=== PATIENT | male | born 1985 | race Caucasian/White ===

== ENCOUNTER 2018-03-29 14:40 | Emergency (ER) | payer MEDICAID, OTHER ==
[~2018-03-29] VITALS: Ht 190.5 cm; Wt 74.8 kg
[2018-03-29 14:56] VITALS: BP 140/96
== END 2018-03-29 17:20 | disposition left against medical advice (07) ==
LOC: ER 14:49
DX: R07.89 Other chest pain (principal); F10.10 Alcohol abuse, uncomplicated; F17.210 Nicotine dependence, cigarettes, uncomplicated

== ENCOUNTER 2018-11-04 15:31 | Emergency (ER) | payer MEDICAID ==
[~2018-11-04] VITALS: Ht 167.6 cm; Wt 74.8 kg
[2018-11-04 15:46] VITALS: BP 135/95
== END 2018-11-04 16:52 | disposition home or self-care (01) ==
LOC: ER 15:31
DX: J32.9 Chronic sinusitis, unspecified (principal); F17.210 Nicotine dependence, cigarettes, uncomplicated

== ENCOUNTER 2020-05-08 10:23 | Emergency (ER) | payer MEDICAID ==
[~2020-05-08] VITALS: Ht 175.3 cm; Wt 74.8 kg
[2020-05-08 10:48] VITALS: BP 140/78
[2020-05-08] MEDS ORDERED: LIDOCAINE 1% HCL (LOCAL ANESTH.) INJ 20ML MDV IJ ONE (11:15)
[2020-05-08] MEDS ORDERED: BACITRACIN TOP OINT 1 UD PKG TOP ONE (11:45)
== END 2020-05-08 11:44 | disposition home or self-care (01) ==
LOC: ER 10:23
DX: S91.011A Laceration without foreign body, right ankle, initial encounter (principal); F17.210 Nicotine dependence, cigarettes, uncomplicated; X58.XXXA Exposure to other specified factors, initial encounter; Y93.89 Activity, other specified; Y92.89 Other specified places as the place of occurrence of the external cause; Y99.8 Other external cause status
CPT/HCPCS: 12001

== ENCOUNTER 2021-03-19 09:17 | Emergency (ER) | payer MEDICAID ==
[~2021-03-19] VITALS: Ht 175.3 cm; Wt 79.4 kg
[2021-03-19] MEDS ORDERED: IOHEXOL 300 MG/ML 100ML BOTTLE IJ ONE ×2 (09:34→11:32)
[2021-03-19 09:59] LABS: Basophils # (auto) 0 10 ^3/uL (0-0.2); Basophils % (auto) 0.4 % (0.0-2.0); Eosinophils # (auto) 0 10 ^3/uL (0-0.8); Eosinophils % (auto) 0.4 % (0.0-7.0); Hematocrit 42.3 % (41.0-53.0); Hemoglobin 14.8 g/dL (13.5-17.5); Lymphocytes # (auto) 3.4 10 ^3/uL (0.4-5.4); Lymphocytes % (auto) 32.3 % (10.0-50.0); Mean Corpuscular Hemoglobin 33.1 pg (28.0-32.0); Mean Corpuscular Hgb Conc. 35.1 g/dL (32.0-36.0); Mean Corpuscular Volume 94.3 fL (80.0-100.0); Monocytes # (auto) 0.3 10 ^3/uL (0-1.3); Monocytes % (auto) 2.9 % (0.0-12.0); Neutrophils # (auto) 6.7 10 ^3/uL (1.6-8.6); Nucleated Red Blood Cells % 0.1 %; Red Blood Cells 4.48 10^6/uL (4.5-5.90); Red Cell Distribution Width 14.2 % (11.8-14.3); White Blood Cell 10.4 10^3/uL (4.4-10.8)
[2021-03-19] MEDS ORDERED: MORPHINE SULFATE 4 MG/ML SYR/VIAL IV ONE (10:00)
[2021-03-19] MEDS ORDERED: ONDANSETRON HCL 4 MG/2 ML VIAL IV ONE (10:00)
[2021-03-19] MEDS ORDERED: LORazepam 2MG/ML-1ML VIAL IV ONE (10:00)
[2021-03-19 10:08] LABS: Albumin 3.7 g/dL (3.4-5.0); Calcium 7.8 mg/dL (8.5-10.1); Potassium 3.3 mmol/L (3.5-5.1)
[2021-03-19 10:11] LABS: BUN/Creatinine Ratio 10.1; Bilirubin, Total 0.3 mg/dL (0.2-1.0); Total Protein 6.8 g/dL (6.4-8.2)
[2021-03-19] MEDS ORDERED: POTASSIUM EFFERVESENT TAB 25 MEQ PO ONE (11:15)
[2021-03-19 12:39] LABS: Urine Bacteria NONE SEEN /hpf (None Seen); Urine Blood TRACE /uL (Negative); Urine Specific Gravity 1.022 (1.001-1.035); Urine WBC <1 /hpf (0 - 3)
[2021-03-19 12:51] LABS: Amphetamine Screen, Urine NEGATIVE (NEGATIVE); Barbiturate Scree,Urine NEGATIVE (NEGATIVE); Benzodiazephine Screen, Urine NEGATIVE (NEGATIVE); Cannabinoid Screen, Urine POSITIVE (NEGATIVE); Cocaine Screen, Urine NEGATIVE (NEGATIVE); Opiate Scree,Urine NEGATIVE (NEGATIVE); Phencyclidine Screen, Urine NEGATIVE (NEGATIVE)
[2021-03-19 14:27] VITALS: BP 134/78
== END 2021-03-19 15:47 ==
LOC: EDBD 09:17 → ER 09:17
DX: S01.81XA Laceration without foreign body of other part of head, initial encounter (principal); F17.210 Nicotine dependence, cigarettes, uncomplicated; V49.9XXA Car occupant (driver) (passenger) injured in unspecified traffic accident, initial encounter; Y93.89 Activity, other specified; Y92.410 Unspecified street and highway as the place of occurrence of the external cause; Y99.8 Other external cause status
CPT/HCPCS: 36415; 70450; 70486; 71260; 72125; 74177; 80053; 80307; 80320; 81001; 85025; 96374; 96375; 99285; J2060; J2270; J2405; Q9967

== ENCOUNTER 2022-08-20 12:23 | Emergency (ER) | payer MEDICAID ==
[~2022-08-20] VITALS: Ht 175.3 cm; Wt 72.0 kg
[2022-08-20] MEDS ORDERED: CEPH-510 PO (13:38)
[2022-08-20] MEDS ORDERED: IBUP600T27 PO (13:38)
[2022-08-20] MEDS ORDERED: TETANUS-DIPTH-ACEL PERTUSSIS 0.5ML SYR Tdap IM ONE (13:45)
[2022-08-20 13:48] VITALS: BP 138/67
== END 2022-08-20 14:48 | disposition home or self-care (01) ==
LOC: ER 12:23
DX: S61.412A Laceration without foreign body of left hand, initial encounter (principal); F17.210 Nicotine dependence, cigarettes, uncomplicated; W26.0XXA Contact with knife, initial encounter; Y93.89 Activity, other specified; Y92.89 Other specified places as the place of occurrence of the external cause; Y99.8 Other external cause status
CPT/HCPCS: 12001

== ENCOUNTER 2022-11-11 15:41 | Emergency (ER) | payer MEDICAID ==
[~2022-11-11] VITALS: Ht 175.3 cm; Wt 75.1 kg
[~2022-11-11 15:41] MED LIST: CEPH-510 PO; IBUP600T27 PO
[2022-11-11 22:39] LABS: Urine Bacteria NONE SEEN /hpf (None Seen); Urine Blood TRACE /uL (Negative); Urine Mucus FEW (None Seen); Urine Specific Gravity 1.014 (1.001-1.035); Urine WBC 3 /hpf (0 - 3)
[2022-11-12] MEDS ORDERED: AMOX500T86 PO (01:39)
[2022-11-12] MEDS ORDERED: IBUP600T27 PO (02:14)
[2022-11-12 02:20] VITALS: BP 130/88
== END 2022-11-12 02:41 | disposition home or self-care (01) ==
LOC: ER 15:41
DX: K08.89 Other specified disorders of teeth and supporting structures (principal); R55 Syncope and collapse; F17.210 Nicotine dependence, cigarettes, uncomplicated; F10.90 Alcohol use, unspecified, uncomplicated; Z88.6 Allergy status to analgesic agent
CPT/HCPCS: 70450; 81001; 93005

== ENCOUNTER 2023-09-10 05:26 | Emergency (ER) | payer MEDICAID ==
[~2023-09-10] VITALS: Ht 172.7 cm; Wt 77.3 kg
[~2023-09-10 05:26] MED LIST changes: +AMOX500T86 PO; +IBUP-1454 PO; -IBUP600T27 PO
[2023-09-10 05:35] VITALS: BP 146/105; PULSE 136; RESP 18; TEMP 98; O2SAT 99
[2023-09-10] MEDS ORDERED: IBUP-1456 PO (06:36)
[2023-09-10] MEDS ORDERED: CLIN300C70 PO (06:36)
== END 2023-09-10 06:55 | disposition home or self-care (01) ==
LOC: ER 05:26
DX: K04.7 Periapical abscess without sinus (principal); F17.210 Nicotine dependence, cigarettes, uncomplicated; Z79.1 Long term (current) use of non-steroidal anti-inflammatories (NSAID); Z79.2 Long term (current) use of antibiotics